=== PATIENT | male | born 1955 | race African-American/Black ===

== ENCOUNTER 2016-05-02 19:16 | Emergency (ER) | payer MEDICARE, SELFPAY ==
--- NOTE | 2016-05-02 19:58 | RAD ---
LEFT ELBOW 4 VIEWS: Date: 05/02/16 HISTORY: Injury. Left elbow pain. FINDINGS/IMPRESSION: An olecranon spur is present. No acute fracture or dislocation is identified. POS: CAROLA
--- NOTE | 2016-05-02 20:16 | RAD ---
LEFT SHOULDER 3 VIEWS: Date: 05/02/16 HISTORY: Injury. Left shoulder pain. FINDINGS/IMPRESSION: There are degenerative changes of the acromioclavicular joint. No acute fracture or dislocation is i dentified. POS: CAROLA
[2016-05-02] MEDS ORDERED: Ketorolac Tromethamine 60 MG/2 ML VIAL ONE (20:34)
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
== END 2016-05-02 20:59 | disposition home or self-care (01) ==
LOC: NAV ERS 19:16
DX: M25.512 Pain in left shoulder (principal); V89.2XXA Person injured in unspecified motor-vehicle accident, traffic, initial encounter
CPT/HCPCS: 96372; J1885

== ENCOUNTER 2018-10-26 09:51 | Outpatient (CLI) | payer MEDICARE ==
--- NOTE | 2018-10-26 10:15 | ULT ---
ULTRASOUND RETROPERITONEUM LIMITED: (ABDOMINAL AORTA) DATE: 10/26/2018 HISTORY: Abdominal aortic aneurysm screening study for 63-year-old male. FINDINGS: The caliber of the entire abdominal aorta is within normal limits. IMPRESSION: No abdominal aortic aneurysm.
== END 2018-10-26 09:52 | disposition home or self-care (01) ==
LOC: NAV ULT 09:51
PROVIDERS: ATTEND Physician Assistant
DX: Z13.6 Encounter for screening for cardiovascular disorders (principal)
CPT/HCPCS: 76775

== ENCOUNTER 2019-11-05 11:03 | Emergency (ER) | payer MEDICARE | END 2019-11-05 11:30 | disposition home or self-care (01) | LOC: NAV ERS 11:03 | DX: M25.512 Pain in left shoulder (principal); G89.29 Other chronic pain; F17.210 Nicotine dependence, cigarettes, uncomplicated | CPT/HCPCS: 99283 ==

== ENCOUNTER 2020-12-30 15:59 | Emergency (ER) | payer MEDICARE ==
[2020-12-30] MEDS ORDERED: Lidocaine 1% (PF) 30 ML VIAL ONE (16:09)
== END 2020-12-30 16:28 | disposition home or self-care (01) ==
LOC: NAV ERS 15:59
DX: L03.012 Cellulitis of left finger (principal); K21.9 Gastro-esophageal reflux disease without esophagitis; E78.00 Pure hypercholesterolemia, unspecified; F17.210 Nicotine dependence, cigarettes, uncomplicated
CPT/HCPCS: 10060; J2001